=== PATIENT | female | born 2000 | race Hispanic/Latino ===

== ENCOUNTER 2022-02-12 14:51 | Outpatient (CLI) | payer OTHER | END 2022-02-12 14:52 | disposition home or self-care (01) | LOC: CSHULT 14:51 | PROVIDERS: ATTEND Family Medicine | DX: Z34.02 Encounter for supervision of normal first pregnancy, second trimester (principal); Z3A.24 24 weeks gestation of pregnancy | CPT/HCPCS: 76805 ==

== ENCOUNTER 2022-05-27 19:30 | Inpatient (IN) | payer MEDICAID, OTHER, SELFPAY ==
[~2022-05-27 19:30] MED LIST: Bupivacaine PF 0.5% 30 ML VIAL ONE; Bupivacaine/Epinephrine 0.25% 30 ML VIAL ONE
[2022-05-27] MEDS ORDERED: Ondansetron PF 4 MG/2 ML Vial IVP PRN (22:39)
[2022-05-27] MEDS ORDERED: Methylergonovine 0.2 MG/ML VIAL IM PRN (22:39)
[2022-05-27] MEDS ORDERED: Carboprost 250 MCG/ML AMP IM PRN (22:39)
[2022-05-27] MEDS ORDERED: Diphenoxylate HCl/Atropine Tablet PO PRN (22:39)
[2022-05-27] MEDS ORDERED: Butorphanol Tartrate 1 MG/ML VIAL SLOW IVP PRN (22:39)
[2022-05-27] MEDS ORDERED: Acetaminophen 500 MG TAB PO PRN (22:39)
[2022-05-27] MEDS ORDERED: Misoprostol 200 MCG TAB PR PRN (22:39)
[2022-05-27] MEDS ORDERED: NS w/ Oxytocin 30 units 500 ML IV SCH (22:39)
[2022-05-27] MEDS ORDERED: HYDROcodone/Acetaminophen 5/325 mg Tablet PO PRN (22:39)
[2022-05-27] MEDS ORDERED: Ibuprofen 800 MG TAB PO PRN (22:39)
[2022-05-27] MEDS ORDERED: Promethazine HCl 25 MG/ML VIAL IM PRN (22:39)
[2022-05-27] MEDS ORDERED: hydrALAZINE 20 MG/ML VIAL SLOW IVP PRN (22:39)
[2022-05-27] MEDS: Lactated Ringer's 1,000 ML IV SCH (23:00)
[2022-05-27 23:39] LABS: Hemoglobin 9.6 g/dL (12.0-15.5); Mean Corpuscular HGB CONC 31.6 g/dL (32.0-36.0); Mean Corpuscular Hemoglobin 22.1 pg (27.0-33.0); Mean Platelet Volume 11.1 fl (7.4-10.4); Platelet Count 230 10x3/uL (150-450); RBC Distribution Width 17.5 % (11.5-14.5); Red Blood Cell (RBC) Count 4.34 10x6/uL (3.90-5.03); White Blood Cell (WBC) Count 6.7 10x3/uL (3.5-10.5)
[2022-05-27] MEDS: Misoprostol 100 MCG TAB VAG SCH (23:40)
[2022-05-27 23:47] LABS: Glucose 84 mg/dL (70-105)
[2022-05-28 00:12] LABS: HBSAg Index 0.15 S/CO (0-0.99); Hep B Surf Ag Non-Reactive S/CO (NonReactive); Syphilis Antibody Nonreactive (Nonreactive); Syphilis Antibody Index 0.02 S/CO (<1.00 Non-Reactive)
[2022-05-28 00:22] LABS: SARS-CoV-2 NAA Rapid Test Not Detected (NotDetected)
[2022-05-28 00:29] VITALS: BMI 32.7
[2022-05-28] MEDS: Misoprostol 100 MCG TAB VAG SCH ×3 (05:42→14:37)
[2022-05-28] MEDS ORDERED: Fentanyl 2 mcg/Bup 0.1% Cadd 100 ML ONE (08:22)
[2022-05-28] MEDS: Lactated Ringer's 1,000 ML IV SCH ×2 (08:53→17:55)
[2022-05-28] MEDS ORDERED: ePHEDrine Sulfate 50 MG/10 ML VIAL SLOW IVP PRN (08:58)
[2022-05-28] MEDS ORDERED: Lactated Ringer's 500 ML IV PRN (08:58)
[2022-05-28] MEDS ORDERED: Naloxone HCl 0.4 mg/ml Vial IVP PRN ×2 (08:58)
[2022-05-28] MEDS ORDERED: Moisturizing Cream (Eucerin) 113 GM JAR TOP PRN (08:58)
[2022-05-28] MEDS ORDERED: diphenhydrAMINE 50 MG/ML VIAL IVP PRN (08:58)
[2022-05-28] MEDS ORDERED: Acetaminophen 325 MG TAB PO PRN (08:58)
[2022-05-28] MEDS ORDERED: Ondansetron PF 4 MG/2 ML Vial IVP PRN ×2 (08:58→17:26)
[2022-05-28] MEDS ORDERED: Promethazine HCl 25 MG/ML VIAL IM PRN ×2 (08:58→17:26)
[2022-05-28] MEDS ORDERED: Fentanyl 2 mcg/Bupivacaine 0.1% Cassette 100 ML EPIDURAL SCH (09:00)
[2022-05-28] MEDS ORDERED: Communication Order-Pharmacy FS SCH (09:00)
[2022-05-28] MEDS ORDERED: Lidocaine 1% (PF) 30 ML VIAL ONE (13:32)
[2022-05-28] MEDS: NS w/ Oxytocin 30 units 500 ML IV SCH ×2 (13:58→14:38)
[2022-05-28] MEDS ORDERED: Lanolin Ointment 7 GM TUBE TOP PRN (17:26)
[2022-05-28] MEDS ORDERED: Boostrix 0.5 ML (Tdap) VIAL (>/=7 yrs of age) IM ONE (17:26)
[2022-05-28] MEDS ORDERED: Benzocaine-Menthol 82.5 ML CAN TOP PRN (17:26)
[2022-05-28] MEDS ORDERED: Milk Of Magnesia 30 ML UDCUP PO PRN (17:26)
[2022-05-28] MEDS ORDERED: diphenhydrAMINE 25 MG CAP PO PRN (17:26)
[2022-05-28] MEDS ORDERED: hydrALAZINE 20 MG/ML VIAL SLOW IVP PRN (17:26)
[2022-05-28] MEDS ORDERED: Bisacodyl 10 MG SUPP PR PRN (17:26)
[2022-05-28] MEDS ORDERED: Preparation H Ointment 28 GM TUBE PR PRN (17:26)
[2022-05-28] MEDS ORDERED: Ferrous Sulfate 325 MG TAB PO SCH (18:00)
[2022-05-28] MEDS: Docusate 100 MG CAP PO SCH (21:06)
[2022-05-28] MEDS: Ibuprofen 800 MG TAB PO SCH (21:06)
[2022-05-29] MEDS: Ibuprofen 800 MG TAB PO SCH ×3 (05:48→21:04)
[2022-05-29] MEDS: HYDROcodone/Acetaminophen 5/325 mg Tablet PO PRN ×2 (05:51→13:35)
[2022-05-29] MEDS: Prenatal Vitamin 1 TAB PO SCH (08:24)
[2022-05-29] MEDS: Docusate 100 MG CAP PO SCH ×2 (08:24→21:04)
[2022-05-29] MEDS: Ferrous Sulfate 325 MG TAB PO SCH ×2 (08:24→16:33)
[2022-05-30] MEDS: HYDROcodone/Acetaminophen 5/325 mg Tablet PO PRN (04:07)
[2022-05-30] MEDS: Ibuprofen 800 MG TAB PO SCH ×2 (06:02→14:11)
[2022-05-30] MEDS: Ferrous Sulfate 325 MG TAB PO SCH (08:45)
[2022-05-30] MEDS: Docusate 100 MG CAP PO SCH (08:45)
[2022-05-30] MEDS: Prenatal Vitamin 1 TAB PO SCH (08:45)
[2022-05-30 11:45] VITALS: BP 114/62; TEMP 98
== END 2022-05-30 17:50 | disposition home or self-care (01) | DRG 805 ==
LOC: CSHLD 20:14 → CSHPP 05-28 17:25
PROVIDERS: ADMIT Family Medicine; ATTEND Family Medicine
PROC: 10E0XZZ Delivery of Products of Conception, External Approach (ICD-10-PCS; principal; 2022-05-28)
PROC: 0KQM0ZZ Repair Perineum Muscle, Open Approach (ICD-10-PCS; 2022-05-28)
PROC: 10907ZC Drainage of Amniotic Fluid, Therapeutic from Products of Conception, Via Natural or Artificial Opening (ICD-10-PCS; 2022-05-28)
PROC: 3E0P7VZ Introduction of Hormone into Female Reproductive, Via Natural or Artificial Opening (ICD-10-PCS; 2022-05-28)
DX: O26.62 Liver and biliary tract disorders in childbirth (principal); K83.1 Obstruction of bile duct; Z37.0 Single live birth; Z20.822 Contact with and (suspected) exposure to COVID-19; Z3A.38 38 weeks gestation of pregnancy; O24.420 Gestational diabetes mellitus in childbirth, diet controlled; O70.1 Second degree perineal laceration during delivery; O69.81X0 Labor and delivery complicated by cord around neck, without compression, not applicable or unspecified
CPT/HCPCS: 36415; 51702; 82947; 85027; 86780; 86850; 86900; 86901; 87340; J2590; J7120; S0020; U0002